=== PATIENT | female | born 1965 | race Caucasian/White ===

== ENCOUNTER 2019-01-27 16:00 | Emergency (ER) | payer BC ==
--- NOTE | 2019-01-27 18:24 | ED ---
Head Injury - HPI Summary HPI Summary: 53-year-old female presents with head injury today. States she fell on stairs some metal. She denies any loss consciousness. She states that her headache was intense is not anymore after Advil. She denies any nausea vomiting. No visual changes. She states she she feels foggy and dizzy. She is not on blood thinners. 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 surgery was over 20 years ago. She denies a history of concussions. - History Of Current Complaint Chief Complaint: EDHeadInjury Stated Complaint: HEAD INJURY PER PT Time Seen by Provider: 01/27/19 18:00 Pain Intensity: 5 - Allergies/Home Medications Allergies/Adverse Reactions: Allergies Allergy/AdvReac Type Severity Reaction Status Date / Time clindamycin Allergy Unknown Verified 01/27/19 16:24 Reaction Details vancomycin Allergy Shakes Verified 01/27/19 16:24 PMH/Surg Hx/FS Hx/Imm Hx Endocrine/Hematology History: Reports: Hx Diabetes - HYPOPITUITARISM, Other Endocrine/Hematological Disorders - pituitary removal due to [place] Denies: Hx Anticoagulant Therapy, Hx Thyroid Disease Cardiovascular History: Reports: Hx Hypotension Denies: Hx Hypertension, Hx Pacemaker/ICD Respiratory History: Denies: Hx Asthma, Hx Chronic Obstructive Pulmonary Disease (COPD) GI History: Reports: Hx Gall Bladder Disease History: Reports: Other Problems/Disorders - GI problems related to stress Denies: Hx Dialysis, Hx Renal Disease Musculoskeletal History: Reports: Hx Back Problems Sensory History: Reports: Hx Contacts or Glasses Denies: Hx Hearing Aid Opthamlomology History: Reports: Hx Contacts or Glasses Neurological History: Reports: Hx Migraine, Other Neuro Impairments/Disorders - pituitary tumor 1981 Denies: Hx Dementia, Hx Seizures Psychiatric History: Reports: Hx Attention Deficit Hyperactivity Disorder, Hx Depression Denies: Hx Panic Disorder, Hx Substance Abuse - Cancer History Cancer Type, Location and Year: pituitary 1981, hx radiation and chemo Hx Chemotherapy: Yes - pituitary tumor (ca) 1981 Hx Radiation Therapy: Yes - Surgical History Surgery Procedure, Year, and Place: INTENSTINAL surgery when 9. Pituitary tumor , removed, [place] 1981. Sinus surgery 1988. Gallbladder and appendix removal Hx Anesthesia Reactions: No Infectious Disease History: No Infectious Disease History: Denies: Hx Hepatitis, Hx Human Immunodeficiency Virus (HIV), Traveled Outside the [place] in Last 30 Days - Family History Known Family History: Positive: Non-Contributory - Social History Alcohol Use: None Substance Use Type: Reports: None Review of Systems Negative: Fever Negative: Chest Pain Negative: Shortness Of Breath Negative: Vomiting, Nausea Positive: Headache All Other Systems Reviewed And Are Negative: Yes Physical Exam Triage Information Reviewed: Yes Vital Signs On Initial Exam: Initial Vitals Temp Pulse Resp BP Pulse Ox 98.6 F 69 18 145/82 98 01/27/19 16:05 01/27/19 16:05 01/27/19 16:05 01/27/19 16:05 01/27/19 16:05 Vital Signs Reviewed: Yes Appearance: Positive: Well-Appearing Skin: Positive: Warm, Dry Head/Face: Positive: Normal Head/Face Inspection, Other - tenderness right posterior scalp, no step off Eyes: Positive: Normal, EOMI, DELFINO, Conjunctiva Clear ENT: Positive: Normal ENT inspection, Pharynx normal, TMs normal Neck: Positive: Other: - nontender neck Respiratory/Lung Sounds: Positive: Clear to Auscultation, Breath Sounds Present Cardiovascular: Positive: Normal, RRR Abdomen Description: Positive: Nontender, Soft Bowel Sounds: Positive: Present Musculoskeletal: Positive: Normal Neurological: Positive: Sensory/Motor Intact, Alert, Oriented to Person Place, Time, CN Intact II-III Psychiatric: Positive: Normal - Vaughn Coma Scale Best Eye Response: 4 - Spontaneous Best Motor Response: 6 - Obeys Commands Best Verbal Response: 5 - Oriented Coma Scale Total: 15 Procedures - Sedation Patient Received Moderate/Deep Sedation with Procedure: No Diagnostics - Vital Signs Vital Signs Temp Pulse Resp BP Pulse Ox 01/27/19 16:05 98.6 F 69 18 145/82 98 - Laboratory Lab Statement: Any lab studies that have been ordered have been reviewed, and results considered in the medical decision making process. Head Injury Course/Dx Course Of Treatment: 53-year-old female presents with head injury today. States she fell on stairs some metal. She denies any loss consciousness. She states that her headache was intense is not anymore after Advil. She denies any nausea vomiting. No visual changes. She states she she feels foggy and dizzy. She is not on blood thinners. 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 surgery was over 20 years ago. She denies a history of concussions. On exam has normal neuro exam. Has contusion been noted to posterior aspect of the head. According to [facility] rules does not need any head imaging. Warned if develop any vomiting to return. Told to follow up primary within 5 days. gave concussion precautions. Patient understands agrees with plan. - Diagnoses Differential Diagnosis/HQI/PQRI: Concussion Without LOC, Contusion, Intracranial Bleed Provider Diagnoses: Head injury Discharge ED - Sign-Out/Discharge Documenting (check all that apply): Patient Departure - Discharge Plan Condition: Good Disposition: HOME Patient Education Materials: Head Injury (ED) Referrals: Brigida Duffy MD [Primary Care Provider] - Additional Instructions: Place ice on area as needed Take Tylenol for headache every 6 hours Modify activities as tolerated Follow up with primary within 5 days Return to ED if develop vomiting, severe headache, change in behavior, or any new or worsening symptoms - Billing Disposition and Condition Condition: GOOD Disposition: Home - Attestation Statements Provider Attestation: I was available for consult. This patient was seen by the JUN. The patient was not presented to, seen by, or examined by me. Virgilio Schofield MD
[2019-01-27 18:55] VITALS: BP 136/79
== END 2019-01-27 18:40 | disposition home or self-care (01) ==
LOC: ED 16:00
DX: S09.90XA Unspecified injury of head, initial encounter (principal); W10.9XXA Fall (on) (from) unspecified stairs and steps, initial encounter; Y92.9 Unspecified place or not applicable; E11.9 Type 2 diabetes mellitus without complications; E23.0 Hypopituitarism; Z85.89 Personal history of malignant neoplasm of other organs and systems; Z88.1 Allergy status to other antibiotic agents
CPT/HCPCS: 99281

== ENCOUNTER 2019-02-23 10:34 | Emergency (ER) | payer BC ==
[2019-02-23 10:54] VITALS: BP 128/76
--- NOTE | 2019-02-23 11:45 | UC ---
Lower Extremity/Ankle HPI - HPI Summary HPI Summary: WOKE UP YESTERDAY MORNING WITH LEFT MEDIAL FOOT PAIN. DENIES ANY TRAUMA OR INJURY THAT SHE CAN RECALL. - History of Current Complaint Chief Complaint: UCLowerExtremity Stated Complaint: ANKLE PAIN Time Seen by Provider: 02/23/19 11:30 Hx Obtained From: Patient Onset/Duration: Sudden Onset, Lasting Days - 1 DAY, Still Present Severity Initially: Moderate Severity Currently: Moderate Pain Intensity: 8 Pain Scale Used: 0-10 Numeric Aggravating Factor(s): Standing, Ambulation Alleviating Factor(s): Rest, Elevation Able to Bear Weight: Yes - Allergies/Home Medications Allergies/Adverse Reactions: Allergies Allergy/AdvReac Type Severity Reaction Status Date / Time clindamycin Allergy Unknown Verified 02/23/19 10:54 Reaction Details vancomycin Allergy Shakes Verified 02/23/19 10:54 PMH/Surg Hx/FS Hx/Imm Hx - Additional Past Medical History Additional PMH: HYPOPITUITARISM Other History Of: Negative For: Anticoagulant Therapy - Surgical History Surgical History: Yes Surgery Procedure, Year, and Place: INTENSTINAL surgery when 9. Pituitary tumor , removed, [place] 1981. Sinus surgery 1988. Gallbladder and appendix removal - Family History Known Family History: Positive: Non-Contributory - Social History Alcohol Use: None Substance Use Type: None Smoking Status (MU): Never Smoked Tobacco - Immunization History Most Recent Influenza Vaccination: 2012 Most Recent Tetanus Shot: 2003 Most Recent Pneumonia Vaccination: NEVER Review of Systems All Other Systems Reviewed And Are Negative: Yes Constitutional: Positive: Negative Skin: Positive: Negative Respiratory: Positive: Negative Cardiovascular: Positive: Negative Gastrointestinal: Positive: Negative Musculoskeletal: Positive: Arthralgia Physical Exam Triage Information Reviewed: Yes Appearance: Well-Appearing, No Pain Distress, Well-Nourished Vital Signs: Initial Vital Signs Temp 98.9 F 02/23/19 10:50 Pulse 81 02/23/19 10:50 Resp 18 02/23/19 10:50 BP 128/76 02/23/19 10:50 Pulse Ox 100 02/23/19 10:50 Vital Signs Reviewed: Yes Eyes: Positive: Conjunctiva Clear ENT: Positive: Hearing grossly normal Neck: Positive: Supple Respiratory: Positive: No respiratory distress, No accessory muscle use Cardiovascular: Positive: Pulses Normal Abdomen Description: Positive: Soft Musculoskeletal: Positive: ROM Intact, Edema @ - 1+ NONPITTING ANKLE EDEMA BILATERALLY, Other: - TTP LEFT FOOT OVERLYING MEDIAL CUNEIFORM. ACHILLES INTACT Neurological: Positive: Alert Psychological: Positive: Age Appropriate Behavior Skin: Negative: Rashes Diagnostics - Radiology LEFT FOOT XRAYS Radiology Interpretation Completed By: Radiologist Summary of Radiographic Findings: No fracture of the left foot is noted. Lower Extremity Course/Dx - Course Course Of Treatment: X-RAY TODAY UNREMARKABLE. CAM BOOT PROVIDED FOR COMFORT AND TO ASSIST WITH MOBILITY. ADVISED FOLLOW-UP WITH ORTHOPEDICS FOR FURTHER EVALUATION. - Differential Dx/Diagnosis Provider Diagnosis: Left foot pain Discharge ED - Sign-Out/Discharge Documenting (check all that apply): Patient Departure All imaging exams completed and their final reports reviewed: Yes - Discharge Plan Condition: Stable Disposition: HOME Patient Education Materials: Foot Sprain (ED) Referrals: Rad Green MD [Medical Doctor] - 1 Week Brigida Duffy MD [Primary Care Provider] - If Needed Additional Instructions: FOOT X-RAY TODAY UNREMARKABLE. REST, ELEVATE, CAM BOOT TO HELP WITH COMPRESSION AND MOBILITY. FOLLOW-UP WITH ORTHOPEDICS FOR FURTHER EVALUATION. - Billing Disposition and Condition Condition: STABLE Disposition: Home
== END 2019-02-23 12:25 | disposition home or self-care (01) ==
LOC: UCEAST 10:34
DX: M79.672 Pain in left foot (principal); Z88.1 Allergy status to other antibiotic agents
CPT/HCPCS: 99211; G0463